=== PATIENT | female | born 1930 | race African-American/Black ===

== ENCOUNTER 2019-04-01 14:10 | Inpatient (IN) | payer OTHER ==
[2019-04-01] VITALS (21 sets, daily range): BP systolic 76–119; BP diastolic 42–57
[~2019-04-01] VITALS: Ht 165.1 cm; Wt 60.8 kg
[2019-04-01] MEDS ORDERED: ETOMIDATE 2MG/ML 10ML VIAL IV ONE (14:17)
[2019-04-01] MEDS ORDERED: VECURONIUM BROMIDE 10 MG/VIAL IV ONE (14:17)
[2019-04-01] MEDS ORDERED: SODIUM CHLORIDE 0.9% 10ML VIAL ONE (14:17)
[2019-04-01] MEDS ORDERED: SODIUM CHLORIDE 0.9% 1000ML BAG (SEPSIS BOLUS) IV ONE (14:45)
[2019-04-01] MEDS ORDERED: VANCOMYCIN 1 G PREMIX 200 ML IV ONE (14:45)
[2019-04-01] MEDS ORDERED: PIPERACILLIN/TAZ 3.375G PREMIX 50 ML IV ONE (14:45)
[2019-04-01] MEDS ORDERED: NOREPINEPHRINE 4 MG in DEXT 5% WATER 250 ML IV PRN (15:00)
[2019-04-01 15:10] LABS: CLARITY URINE CLOUDY (CLEAR); COLOR URINE DARK YELLOW (YELLOW); KETONES URINE NEGATIVE (NEGATIVE); LEUKOCYTE ESTERASE URINE NEGATIVE (NEGATIVE); NITRITE URINE NEGATIVE (NEGATIVE); OCCULT BLOOD URINE 1+ (NEGATIVE); PROTEIN URINE 1+ (NEGATIVE); SPECIFIC GRAVITY URINE 1.024 (1.005-1.030)
[2019-04-01 15:13] LABS: CHLORIDE 108 mEq/L (98-107); PROTHROMBIN TIME 10.1 sec (9.6-11.0)
[2019-04-01] MEDS ORDERED: NOREPINEPHRINE 4MG/250ML PMX 250 ML IV PRN ×2 (15:15)
[2019-04-01] MEDS ORDERED: LIDOCAINE HCL/PF 1% 10 MG/ML 5ML VIAL ONE (16:27)
[2019-04-01] MEDS ORDERED: MIDAZOLAM HCL 2 MG/2 ML VIAL ONE (16:33)
[2019-04-01 16:53] LABS: BASOPHILS % 0.3 % (0.0-2.0); HEMATOCRIT. 36.2 % (36.0-48.0); HEMOGLOBIN. 11.7 g/dL (12.0-16.0); LYMPHOCYTES % 15.2 % (20.0-50.0); MEAN CORPUSCULAR HEMOGLOBIN 30.5 pg (28.0-32.0); MEAN CORPUSCULAR VOLUME 94.3 fL (81.0-99.0); MEAN PLATELET VOLUME 8.2 fl (7.4-10.4); MONOCYTES % 9.4 % (2.0-8.0); NEUTROPHILS % 75.1 % (40.0-76.0); PLATELET 208 x1000/uL (130-400); RED BLOOD CELL COUNT 3.83 mill/uL (4.2-5.4); RED CELL DISTRIBUTION WIDTH 16.8 % (11.6-14.6)
[2019-04-01] MEDS ORDERED: IPRATROPIUM/ALBUTEROL 0.5-3(2.5)MG/3ML NEB HHN PRN (17:15)
[2019-04-01] MEDS ORDERED: NOREPINEPHRINE 4 MG in DEXT 5% WATER 246 ML IV PRN ×2 (17:15→19:00)
[2019-04-01] MEDS ORDERED: PHENYLEPHRINE 10 MG in DEXT 5% WATER 249 ML IV PRN (17:15)
[2019-04-01] MEDS ORDERED: PIPERACILLIN/TAZOBACTAM 3.375 G in DEXT 5% WATER 100 ML IV SCH (17:15)
[2019-04-01] MEDS: PROPOFOL 10MG/ML 100ML 100 ML IV PRN ×2 (17:35→23:37)
[2019-04-01 17:38] LABS: BG BASE EXCESS 1.4 mmol/L (-2.0-2.0); BG DEOXYHEMOGLOBIN 0.5 % (0.0-5.0); BG FRACTION INSPIRED OXYGEN 100; BG OXYGEN SATURATION 99.5 % (92.0-98.5); BG OXYHEMOGLOBIN 99.5 % (94.0-97.0); BG PCO2 17.7 mmHg (35.0-45.0); BG PO2 280.8 mmHg (75.0-100.0); BG SAMPLE SITE RIGHT BRACHIAL; BG TIDAL VOLUME(mL) 500 mL; BG TOTAL HEMOGLOBIN 11.5 g/dL (12.0-18.0); BG VENT MODE VENT - A/C; BG VENT RATE 25 set
[2019-04-01] MEDS ORDERED: MIDAZOLAM HCL 2 MG/2 ML VIAL IV ONE (17:45)
[2019-04-01] MEDS ORDERED: LIDOCAINE HCL 1% 20ML VIAL (Pyxis) INJ INFIL ONE (17:45)
[2019-04-01] MEDS: IPRATROPIUM/ALBUTEROL 0.5-3(2.5)MG/3ML NEB HHN SCH ×2 (19:57→23:51)
[2019-04-01] MEDS ORDERED: ATOR80TA MT (20:25)
[2019-04-01] MEDS ORDERED: ATEN100T MT (20:25)
[2019-04-01] MEDS ORDERED: AMLO10TA4 MT (20:25)
[2019-04-01] MEDS ORDERED: CLOP75TA4 MT (20:25)
[2019-04-01] MEDS ORDERED: LISI40TA4 MT (20:25)
[2019-04-01] MEDS: PIPERACILLIN/TAZOBACTAM 2.25 G in DEXTROSE 5% WATER 50 ML IV SCH (21:22)
[2019-04-01] MEDS ORDERED: POTASSIUM CHLORIDE INJ 40 MEQ in DEXT 5% WATER 250 ML IV SCH (21:30)
[2019-04-01] MEDS: POTASSIUM CHLORIDE INJ 10 MEQ in DEXT 5%/0.2% NACL 1,000 ML IV SCH (22:01)
[2019-04-02] VITALS (85 sets, daily range): BP systolic 78–156; BP diastolic 44–87
[2019-04-02] MEDS: VANCOMYCIN 500 MG PREMIX 100 ML IV SCH ×2 (02:35→14:18)
[2019-04-02] MEDS: PIPERACILLIN/TAZOBACTAM 2.25 G in DEXTROSE 5% WATER 50 ML IV SCH ×4 (04:48→20:58)
[2019-04-02 05:16] LABS: BASOPHILS % 0.1 % (0.0-2.0); EOSINOPHILS % 0.2 % (0.0-5.0); HEMATOCRIT. 32.5 % (36.0-48.0); HEMOGLOBIN. 10.9 g/dL (12.0-16.0); MEAN CORPUSCULAR VOLUME 92.8 fL (81.0-99.0); MEAN PLATELET VOLUME 8.5 fl (7.4-10.4); NEUTROPHILS % 79.7 % (40.0-76.0); PLATELET 244 x1000/uL (130-400); RED BLOOD CELL COUNT 3.51 mill/uL (4.2-5.4); RED CELL DISTRIBUTION WIDTH 16.8 % (11.6-14.6)
[2019-04-02 05:24] LABS: CHLORIDE 111 mEq/L (98-107)
[2019-04-02 05:35] LABS: PHOSPHORUS 2.5 mg/dL (2.5-4.9)
[2019-04-02] MEDS: PROPOFOL 10MG/ML 100ML 100 ML IV PRN (06:18)
[2019-04-02 08:17] LABS: BG BASE EXCESS 0.6 mmol/L (-2.0-2.0); BG CARBOXYHEMOGLOBIN 0.3 % (0.5-1.5); BG DEOXYHEMOGLOBIN 1.5 % (0.0-5.0); BG FRACTION INSPIRED OXYGEN 40; BG HCO3 ACT 23.2 mmol/L (22.0-26.0); BG METHEMOGLOBIN 0.1 % (0.0-1.5); BG OXYGEN SATURATION 98.5 % (92.0-98.5); BG OXYHEMOGLOBIN 98.1 % (94.0-97.0); BG PCO2 30.5 mmHg (35.0-45.0); BG PH 7.499 (7.350-7.450); BG PO2 128.9 mmHg (75.0-100.0); BG SAMPLE SITE RIGHT BRACHIAL; BG TIDAL VOLUME(mL) 500 mL; BG TOTAL HEMOGLOBIN 10.6 g/dL (12.0-18.0); BG VENT MODE VENT - A/C; BG VENT RATE 16 set
[2019-04-02] MEDS: IPRATROPIUM/ALBUTEROL 0.5-3(2.5)MG/3ML NEB HHN SCH ×4 (08:18→20:40)
[2019-04-02] MEDS ORDERED: FAMOTIDINE 20MG/2ML VIAL IV SCH (09:00)
[2019-04-02] MEDS ORDERED: PROPOFOL 10MG/ML 100ML 100 ML IV PRN (10:30)
[2019-04-02] MEDS: POTASSIUM CHLORIDE INJ 10 MEQ in DEXT 5%/0.2% NACL 1,000 ML IV SCH (17:41)
== END 2019-04-02 22:20 | disposition short-term general hospital (02) | DRG 871 ==
LOC: ER 14:10 → EDBEDREQ 14:38 → EDBEDREQSVC 14:38 → EDBEDREQ 15:54 → ENRESERV 15:56 → CVICU 18:13
PROVIDERS: ADMIT Internal Medicine; ATTEND Internal Medicine
PROC: 4A043B0 Measurement of Venous Pressure, Central, Percutaneous Approach (ICD-10-PCS; principal; 2019-04-01)
PROC: 0BH17EZ Insertion of Endotracheal Airway into Trachea, Via Natural or Artificial Opening (ICD-10-PCS; 2019-04-01)
PROC: 02HV33Z Insertion of Infusion Device into Superior Vena Cava, Percutaneous Approach (ICD-10-PCS; 2019-04-01)
PROC: B548ZZA Ultrasonography of Superior Vena Cava, Guidance (ICD-10-PCS; 2019-04-01)
PROC: 5A1945Z Respiratory Ventilation, 24-96 Consecutive Hours (ICD-10-PCS; 2019-04-01)
DX: A41.9 Sepsis, unspecified organism (principal); E43 Unspecified severe protein-calorie malnutrition; G93.41 Metabolic encephalopathy; J69.0 Pneumonitis due to inhalation of food and vomit; J96.02 Acute respiratory failure with hypercapnia; E87.0 Hyperosmolality and hypernatremia; I69.354 Hemiplegia and hemiparesis following cerebral infarction affecting left non-dominant side; N17.9 Acute kidney failure, unspecified; E87.8 Other disorders of electrolyte and fluid balance, not elsewhere classified; E86.0 Dehydration; E87.6 Hypokalemia; I10 Essential (primary) hypertension; J44.9 Chronic obstructive pulmonary disease, unspecified; Z85.038 Personal history of other malignant neoplasm of large intestine; Z85.3 Personal history of malignant neoplasm of breast; Z93.1 Gastrostomy status; Z68.22 Body mass index [BMI] 22.0-22.9, adult; Z78.1 Physical restraint status
CPT/HCPCS: 36415; 36600; 71045; 80048; 81003; 82375; 82805; 82962; 83605; 83735; 84100; 84145; 84478; 84484; 87070; 87077; 87186; 93005; 94002; 94003; 94640; 94660; 99285; J2250; J2543; J2704; J3370; J3480; J3490; J7030; J7060; J7620